=== PATIENT | male | born 1995 | race Caucasian/White ===

== ENCOUNTER 2016-11-01 04:19 | Observation (INO) | payer OTHER ==
[2016-11-01] VITALS (12 sets, daily range): BP systolic 94–118; BP diastolic 57–73; PULSE 53–79; TEMP 36.3–36.7; O2SAT 98–100; Ht 188 cm; Wt 81.0 kg
[~2016-11-01] VITALS: Ht 188 cm; Wt 81.0 kg
[2016-11-01] MEDS ORDERED: AMINOCAPROIC (AMICAR) 5% MOUTHWASH PO ONE (04:45)
[2016-11-01] MEDS: AMINOCAPROIC ACID 500 MG TAB PO ONE ×4 (05:00→05:22)
[2016-11-01 05:02] LABS: BASO % 0.4 %; BASO ABS # 0.02 K/uL (0-0.2); COMPLETE YES; EOS % 2.5 %; HEMATOCRIT 38.6 % (42-52); IG% 0.2 %; LYMPH % 33.2 %; LYMPH ABS # 1.75 K/uL (1.2-3.4); MEAN CELL VOLUME 82.8 fL (80-100); MEAN CORPUSCULAR HGB CONC 36.3 g/dl (32-36); MEAN PLATELET VOLUME 8.6 fL (7.4-10.4); MONO % 8.9 %; NEUT % 54.8 %; PLATELET COUNT 217 K/uL (130-400); RED BLOOD COUNT 4.66 M/uL (4.7-6.1); WHITE BLOOD COUNT 5.27 K/uL (4.8-10.8)
[2016-11-01 05:25] LABS: BUN/CREATININE RATIO 16.4 (10-20); CALCIUM 8.7 mg/dl (8.5-10.1); CREATININE 0.92 mg/dl (0.60-1.40); MAGNESIUM 2.1 mg/dl (1.8-2.4); POTASSIUM 3.4 mmol/L (3.5-5.1)
[2016-11-01 05:28] LABS: ALB/GLOB RATIO 1.3 (0.9-2)
[2016-11-01 05:32] LABS: PROTHROMBIN TIME (PATIENT) 79.7 SECONDS (9.0-12.0)
[2016-11-01 05:44] LABS: INR 6.9 (0.9-1.1); PARTIAL THROMBOPLASTIN RATIO 6.6
[2016-11-01] MEDS ORDERED: TRANEXAMIC ACID INJ 1,000 MG in SODIUM CHLORIDE 0.9% 100ML 100 ML IV ONE (06:00)
[2016-11-01] MEDS ORDERED: ACETAMINOPHEN 325 MG TAB PO PRN (06:45)
[2016-11-01] MEDS ORDERED: MAGNESIUM HYDROXIDE SUSP 30 ML UDC PO PRN (06:45)
[2016-11-01] MEDS ORDERED: ALUMINUM/MAGNESIUM/SIMETH (MAALOX MAX) 30 ML UDC PO PRN (06:45)
[2016-11-01] MEDS ORDERED: ONDANSETRON INJ 2 MG/ML 2 ML VIAL IV PRN (06:45)
--- NOTE | 2016-11-01 06:54 | History and Physical ---
History & Physical Date & Time of Service: Nov 01, 2016 at 06:37 Chief Complaint: Hemoplelin,Mouth Bleed All Night Primary Care Physician: 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 Pt developed a bleed behind his 2 front teeth which has been oozing for over 3 days. He takes oral Tranexamic acid regularly but had exhausted his supply. He states however that this does not help once the bleeding begins and that he invariably requires FFPs. He is a student here and normally gets care under the auspices of the hematology service at [facility]. He denies light headedness, nausea, vomiting or fevers. Past Medical/Surgical History 1) Hemophilia - Factor V deficiency Family History Both parents alive and well - no hemophilia in other family members Social History Computer science and engineering major at [employer] Smoking Status: Never Smoker Allergies Coded Allergies: No Known Allergies (Unverified , 11/01/16) Home Medications No Active Prescriptions or Reported Meds Review of Systems Constitutional: No chills, No fever, No sweats Eyes: No eye pain, No worsening of vision ENT: + problem reported (Oral bleed as above), No hearing loss, No nasal symptoms, No unusual epistaxis Respiratory: No cough, No sputum, No wheezing Cardiovascular: No PND, No chest pain, No orthopnea Abdomen: No nausea, No pain, No vomiting Musculoskeletal: No joint pain, No muscle pain Genitourinary - Male: No dysuria, No hematuria, No urinary frequency, No urinary urgency Neurologic: No memory loss, No paralysis, No weakness Psychiatric: No anhedonism, No depression symptoms Endocrine: + fatigue Hematologic / Lymphatic: + abnormal bleeding/bruising Integumentary: + rash Allergic / Immunologic: + environmental allergies Physical Exam Vital Signs Date Time Temp Pulse Resp B/P Pulse Ox O2 Delivery O2 Flow Rate FiO2 11/01/16 05:25 73 20 129/68 99 Room Air 11/01/16 04:24 37.1 78 18 141/71 96 Room Air General Appearance: WD/WN, no apparent distress Head: normocephalic, atraumatic Eyes: normal inspection, PERRL, EOMI ENT: normal ENT inspection, hearing grossly normal, TMs normal, pharynx normal , + pertinent finding (Small area of bleeding behind 2 front teeth) Neck: supple, thyroid normal Respiratory/Chest: chest non-tender, lungs clear, normal breath sounds, no respiratory distress, no accessory muscle use Cardiovascular: regular rate, rhythm, no edema, no gallop Abdomen/GI: normal bowel sounds, non tender, soft Back: normal inspection, no CVA tenderness Extremities/Musculoskelatal: normal inspection, no calf tenderness, normal capillary refill, no pedal edema, normal range of motion 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, no motor/sensory deficits, alert, normal mood/affect, normal reflexes, oriented x 3 Skin: normal color, warm/dry, no rash Diagnostics Laboratory Results Results Past 24 Hours Test 11/01/16 04:48 Range/Units White Blood Count 5.27 4.8-10.8 K/uL Red Blood Count 4.66 4.7-6.1 M/uL Hemoglobin 14.0 14.0-18.0 g/dL Hematocrit 38.6 42-52 % Mean Corpuscular Volume 82.8 80-100 fL Mean Corpuscular Hemoglobin 30.0 25-34 pg Mean Corpuscular Hemoglobin Concent 36.3 32-36 g/dl Platelet Count 217 130-400 K/uL Mean Platelet Volume 8.6 7.4-10.4 fL Neutrophils (%) (Auto) 54.8 % Lymphocytes (%) (Auto) 33.2 % Monocytes (%) (Auto) 8.9 % Eosinophils (%) (Auto) 2.5 % Basophils (%) (Auto) 0.4 % Neutrophils # (Auto) 2.89 1.4-6.5 K/uL Lymphocytes # (Auto) 1.75 1.2-3.4 K/uL Monocytes # (Auto) 0.47 0.11-0.59 K/uL Eosinophils # (Auto) 0.13 0-0.5 K/uL Basophils # (Auto) 0.02 0-0.2 K/uL RDW Standard Deviation 38.5 36.4-46.3 fL RDW Coefficient of Variation 12.7 11.5-14.5 % Immature Granulocyte % (Auto) 0.2 % Immature Granulocyte # (Auto) 0.01 0.00-0.02 K/uL Prothrombin Time 79.7 9.0-12.0 SECONDS Prothromb Time International Ratio 6.9 0.9-1.1 Activated Partial Thromboplast Time 174.6 21.0-31.0 SECONDS Partial Thromboplastin Ratio 6.6 Sodium Level 143 136-145 mmol/L Potassium Level 3.4 3.5-5.1 mmol/L Chloride Level 107 98-107 mmol/L Carbon Dioxide Level 26 21-32 mmol/L Anion Gap 10.0 3-11 mmol/L Blood Urea Nitrogen 15 7-18 mg/dl Creatinine 0.92 0.60-1.40 mg/dl Est Creatinine Clear Calc Drug Dose 148.4 ml/min Estimated GFR () 138.3 Estimated GFR (Non- 119.3 BUN/Creatinine Ratio 16.4 10-20 Random Glucose 100 70-99 mg/dl Calcium Level 8.7 8.5-10.1 mg/dl Magnesium Level 2.1 1.8-2.4 mg/dl Total Bilirubin 0.4 0.2-1 mg/dl Aspartate Amino Transf (AST/SGOT) 19 15-37 U/L Alanine Aminotransferase (ALT/SGPT) 35 12-78 U/L Alkaline Phosphatase 59 45-117 U/L Total Protein 7.0 6.4-8.2 gm/dl Albumin 3.9 3.4-5.0 gm/dl Globulin 3.1 2.5-4.0 gm/dl Albumin/Globulin Ratio 1.3 0.9-2 Impression Assessment and Plan 21 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 Pt developed a bleed behind his 2 front teeth which has been oozing for over 3 days. He takes oral Tranexamic acid regularly but had exhausted his supply. He states however that this does not help once the bleeding begins and that he invariably requires FFPs. He is a student here and normally gets care under the auspices of the hematology service at [facility] under Dr. Tucker. He denies light headedness, nausea, vomiting or fevers. We have contacted the hematology service who have advised on Amicar application q6H however the pt insists that once he starts bleeding he does not stop without FFPs. As he has considerable experience with this, we will oblige him and begin transfusions. He also states that the bleeding normally stops as the FFPs run and that he would like to be D/Cd when it does. There is no anemia present on admission. He has requested that we contact his General Road Production Manager at [facility] which is currently Dr Jo Tucker - [phone] Full code - chem prophylaxis contraindicated - INR on admission 6.9 Total time for this admit including review of records, labs, meds - discussion with Pt and ER attending - 32 min Level of Care Med/Surg Resuscitation Status FULL RESUSCITATION VTE Prophylaxis VTE Risk Assessment Done? Y/N: Yes Risk Level: Low Given or contraindicated: Contraindicated
[2016-11-01] MEDS ORDERED: IV FLUIDS COMPLETED PRN (07:00)
[2016-11-01] MEDS ORDERED: INFLUENZA ADMINISTRATION CHARGE ONE (12:00)
[2016-11-01] MEDS ORDERED: INFLUENZA VIRUS QUAD VACCINE 0.5 ML SYR IM. ONE (12:00)
--- NOTE | 2016-11-01 13:31 | Discharge Instructions ---
Discharge Instructions Admission Reason for Admission: Hemophilia; Oral Bleeding Discharge Discharge Diagnosis / Problem: Bleeding behind teeth with hx of factor V deficiency Discharge Goals Goal(s): Decrease discomfort, Increase independence Activity Recommendations Activity Limitations: resume your previous activity . Instructions / Follow-Up Instructions / Follow-Up You were admitted for bleeding behind your teeth. You were given FFP and your bleeding stopped. Please follow up with your doctor Dr. Morris after discharge. Current Hospital Diet Patient's current hospital diet: Full Liquid Diet Discharge Diet Recommended Diet: Regular Diet Pending Studies Studies pending at discharge: no Medical Emergencies . Who to Call and When: Medical Emergencies: If at any time you feel your situation is an emergency, please call 911 immediately. . Non-Emergent Contact Non-Emergency issues call your: Primary Care Provider . . "Provider Documentation" section prepared by Narayan Smith. VTE Core Measure Inpt VTE Proph given/why not?: Contraindicated
--- NOTE | 2016-11-01 14:19 | Discharge Summary ---
Discharge Summary Date of Service Nov 01, 2016. (Narayan Smith MD) Discharge Summary Admission Date: Nov 01, 2016 at 06:35 Discharge Date: Nov 01, 2016 Discharge Disposition: Home Principal Diagnosis: Hemophilia, Factor V deficiency (Narayan Smith MD) Medication Reconciliation Medication Profile: No Active Prescriptions or Reported Meds Discharge Exam Patient was seen at the bedside. He states that his bleeding has stopped and denies any complaints. Review of Systems: Constitutional: No chills, No fever ENT: No sore throat Respiratory: No cough, No dyspnea on exertion, No shortness of breath, No sputum Cardiovascular: No chest pain Abdomen: No constipation, No diarrhea, No nausea, No pain, No vomiting Musculoskeletal: No muscle pain Genitourinary - Male: No dysuria Neurologic: No weakness Endocrine: No fatigue Hematologic / Lymphatic: + problem reported (He states that his bleeding has stopped) Integumentary: No rash Physical Exam: General Appearance: WD/WN, no apparent distress Neck: supple, trachea midline Respiratory/Chest: chest non-tender, lungs clear, normal breath sounds, no respiratory distress, no accessory muscle use Cardiovascular: regular rate, rhythm, no edema, no murmur Abdomen / GI: normal bowel sounds, non tender, soft Extremities: no pedal edema, non-tender Neurologic/Psychiatric: alert, normal mood/affect, oriented x 3 Skin: normal color, warm/dry, no rash (Narayan Smith MD) Hospital Course This is a 21 y/o male with Factor V deficiency presented to the hospital with bleeding behind his 2 front tooth X3days. He states that he usually takes Tranexamic acid regularly but had exhausted his supply. Per him he usually requires FFP to stop the bleeding. He is a student here and normally gets care at [facility]. Patient was admitted to the hospital for observation. Hematology service was consulted and they advised on Amicar application q6H; however the patient insists that once he starts bleeding he does not stop without FFPs. As he has considerable experience with this, we decided to began transfusions. He received FFPs and his bleeding stopped. His CBC and electrolytes were appropriate. His INR was high (6.9). Patient wanted to be discharged. I called Dr. Morris ([phone]) and had a brief conversation about him. I informed her about his lab results and she stated that he can be discharged. She recommended that he can follow up with her as needed. Total Time Spent: Greater than 30 minutes This includes examination of the patient, discharge planning, medication reconciliation, and communication with other providers. (Narayan Smith MD) Resident Physician Supervision Note: I reviewed the case with Dr. Smith. I initiated the call to the patient's med care manager who eventually called back and spoke to Dr. Smith. The patient was seen earlier today by Dr. Massey. The patient was admitted and discharged in the same day. Documented By: French Fernandez (French Fernandez.,D.O.) Discharge Instructions Please refer to the electronic Patient Visit Report (Discharge Instructions) for additional information. (Narayan Smith MD)
--- NOTE | 2016-11-03 01:39 | EMERGENCY ROOM VISIT NOTE ---
History First contact with patient: 04:29 Chief Complaint: OTHER COMPLAINT Stated Complaint: HEMOPHILIA; ORAL BLEEDING History of Present Illness The patient is a 21 year old male who presents to the Emergency Department by private vehicle for evaluation of bleeding from the gums as well as occasional nosebleeds. The patient reports a significant past medical history of severe factor V deficiency. He follows with [facility]. His global category manager oncologist is located there as well. He reports that a few weeks ago he sustained a small laceration between the upper front teeth. He is an occasional bleeding from the teeth. This evening, while drinking water, he noticed bleeding from the mouth. He awoke with a moderate amount of blood. He has had waxing waning nosebleeds over the last few days. He reports that he has been taking his Lysteda as prescribed for his bleeding, but reports that he has since ran out of his prescription. He reports that he typically receives 2 units of FFP for any bleeding issue. This is happened on multiple occasions. The patient denies any pain rating his discomfort a 0/10. He denies any fevers , chills, headaches, distance, light headedness, chest pain, palpations, short of breath, nausea, vomiting, or melanotic stools. Review of Systems A complete 10-point Review of Systems was discussed with the patient, with pertinent positives and negatives listed in the History of Present Illness. All remaining Review of Systems questions can be considered negative unless otherwise specified. Past Medical/Surgical History Medical Problems: (1) Hemophilia (2) Oral bleeding Social History Smoking Status: Never Smoker Smokeless Tobacco Use: No Drug Use: none Marital Status: single Housing Status: lives with roommate Occupation Status: [employer] student Current/Historical Medications No Active Prescriptions or Reported Meds Allergies Coded Allergies: No Known Allergies (Unverified , 11/01/16) Physical Exam Vital Signs Date Time Temp Pulse Resp B/P Pulse Ox O2 Delivery O2 Flow Rate FiO2 11/01/16 05:25 73 20 129/68 99 Room Air 11/01/16 04:24 37.1 78 18 141/71 96 Room Air Pain Rating (0-10): 0 Physical Exam VITAL SIGNS - Vital signs and nursing notes were reviewed. GENERAL - Well nourished, well developed 21-year-old male in no acute distress. Pt communicates well with provider and answers questions appropriately. SKIN - Without rash. HEAD - NC/AT with no obvious deformities. EYES - PERRL with EOMI bilaterally. Sclera without injection. Palpebral conjunctiva pink and moist. EARS - No deformities of external structures noted on gross examination bilaterally. No pain elicited with palpation of the tragus bilaterally. External auditory canals without discharge or otorrhea. Tympanic membranes pearly jimenez without retraction or bulging. No fluid or purulent material visualized behind the TM. Handle of malleus, umbo, cone of light, pars tensa/ flaccid all easily visualized. NOSE - Midline and without cyanosis. No purulent drainage noted. Nasal mucosa without mucus discharge. MOUTH/OROPHARYNX - Without perioral cyanosis. Buccal mucosa pink and moist and without leukoplakia. Tongue midline with equal elevation of palate bilaterally. No tonsillar hypertrophy, erythema, or exudates noted. Good dentition noted. Persistent oozing of blood noted to the inner gums between the front teeth. NECK - Neck with FROM. Supple to palpation. No lymphadenopathy noted. No nuchal rigidity. Medical Decision & Procedures Laboratory Results 11/01/16 04:48 Red Blood Count 4.66, Mean Corpuscular Volume 82.8, Mean Corpuscular Hemoglobin 30.0, Mean Corpuscular Hemoglobin Concent 36.3, Mean Platelet Volume 8.6, Neutrophils (%) (Auto) 54.8, Lymphocytes (%) (Auto) 33.2, Monocytes (%) (Auto) 8.9, Eosinophils (%) (Auto) 2.5, Basophils (%) (Auto) 0.4, Neutrophils # (Auto) 2.89, Lymphocytes # (Auto) 1.75, Monocytes # (Auto) 0.47, Eosinophils # (Auto) 0.13, Basophils # (Auto) 0.02 11/01/16 04:48 Test 11/01/16 04:48 White Blood Count 5.27 K/uL (4.8-10.8) Red Blood Count 4.66 M/uL (4.7-6.1) Hemoglobin 14.0 g/dL (14.0-18.0) Hematocrit 38.6 % (42-52) Mean Corpuscular Volume 82.8 fL (80-100) Mean Corpuscular Hemoglobin 30.0 pg (25-34) Mean Corpuscular Hemoglobin Concent 36.3 g/dl (32-36) Platelet Count 217 K/uL (130-400) Mean Platelet Volume 8.6 fL (7.4-10.4) Neutrophils (%) (Auto) 54.8 % Lymphocytes (%) (Auto) 33.2 % Monocytes (%) (Auto) 8.9 % Eosinophils (%) (Auto) 2.5 % Basophils (%) (Auto) 0.4 % Neutrophils # (Auto) 2.89 K/uL (1.4-6.5) Lymphocytes # (Auto) 1.75 K/uL (1.2-3.4) Monocytes # (Auto) 0.47 K/uL (0.11-0.59) Eosinophils # (Auto) 0.13 K/uL (0-0.5) Basophils # (Auto) 0.02 K/uL (0-0.2) RDW Standard Deviation 38.5 fL (36.4-46.3) RDW Coefficient of Variation 12.7 % (11.5-14.5) Immature Granulocyte % (Auto) 0.2 % Immature Granulocyte # (Auto) 0.01 K/uL (0.00-0.02) Prothrombin Time 79.7 SECONDS (9.0-12.0) Prothromb Time International Ratio 6.9 (0.9-1.1) Activated Partial Thromboplast Time 174.6 SECONDS (21.0-31.0) Partial Thromboplastin Ratio 6.6 Anion Gap 10.0 mmol/L (3-11) Est Creatinine Clear Calc Drug Dose 148.4 ml/min Estimated GFR () 138.3 Estimated GFR (Non- 119.3 BUN/Creatinine Ratio 16.4 (10-20) Calcium Level 8.7 mg/dl (8.5-10.1) Magnesium Level 2.1 mg/dl (1.8-2.4) Total Bilirubin 0.4 mg/dl (0.2-1) Aspartate Amino Transf (AST/SGOT) 19 U/L (15-37) Alanine Aminotransferase (ALT/SGPT) 35 U/L (12-78) Alkaline Phosphatase 59 U/L (45-117) Total Protein 7.0 gm/dl (6.4-8.2) Albumin 3.9 gm/dl (3.4-5.0) Globulin 3.1 gm/dl (2.5-4.0) Albumin/Globulin Ratio 1.3 (0.9-2) Medications Administered Medications (Trade) Dose Ordered Sig/Vishal Route Start Time Stop Time Status Last Admin Dose Admin Aminocaproic Acid (Amicar 5% Mouthwash) 100 ml ONE ONCE PO 11/01/16 04:45 11/01/16 04:46 DC 11/01/16 04:45 100 ML Aminocaproic Acid (Amicar Tab) 4,000 mg NOW ONCE PO 11/01/16 05:00 11/01/16 05:01 DC 11/01/16 05:21 4,000 MG Aminocaproic Acid (Amicar Tab) 1,000 mg NOW ONCE PO 11/01/16 05:00 11/01/16 05:01 DC 11/01/16 05:22 1,000 MG ED Course Patient was seen and evaluated by myself. I discussed the case with Dr. Morfin. She suggests oral Amicar. Topical are was applied as well. He was treated with 5000 mg of oral Amicar. The patient reports having use this medication the past. Laboratory results demonstrate no acute leukocytosis, worrisome anemia, or bandemia. The patient has no significant electrolyte abnormalities. INR and PTT were significantly elevated consistent with the patient's history of disease. The patient has persistent bleeding and will need further evaluation. The patient was admitted to hospitalist service for close monitoring. Patient was admitted in stable condition. Medical Decision Given the patient's presentation and exam findings, I did elect to perform the above-mentioned workup. Patient presents today with bleeding from the gums. He does admit history of a blood hemophilia. He is out of his medications. At the recommendation of hematology, the patient was treated with Amicar topically as well as orally. He had persistent bleeding despite this. Patient typically receives FFP. He has no set orders from our facility. It was felt best that the patient be admitted and monitored and of FFP is necessary or appropriate, this certainly can be provided while the patient is closely monitored. The patient was admitted to the [facility] hospitalist service in stable condition. In the evaluation and treatment of this patient, the following differential diagnoses were considered: Anemia, dental trauma, DIC, amongst others. Impression Primary Impression: Oral bleeding Additional Impression: Hemophilia Departure Information Dispostion Admitted as an inpatient Condition GOOD Prescriptions No Active Prescriptions or Reported Meds Referrals [facility] (PCP) Forms WORK / SCHOOL INSTRUCTIONS, HOME CARE DOCUMENTATION FORM, IMPORTANT VISIT INFORMATION Patient Instructions My [facility] [place] [facility] Problem Qualifiers
== END 2016-11-01 14:00 | disposition home or self-care (01) ==
LOC: ENRESERVDT → ENRESERVTM → C.EDB 04:21 → C.4E 06:35
PROVIDERS: ADMIT Internal Medicine; ATTEND Internal Medicine
DX: D68.2 Hereditary deficiency of other clotting factors (principal); D66 Hereditary factor VIII deficiency; K06.8 Other specified disorders of gingiva and edentulous alveolar ridge

== ENCOUNTER 2017-01-07 08:47 | Emergency (ER) | payer OTHER ==
[~2017-01-07] VITALS: Ht 188 cm; Wt 80.0 kg
[2017-01-07 08:51] VITALS: Ht 188 cm; Wt 80.0 kg
--- NOTE | 2017-01-07 09:44 | EMERGENCY ROOM VISIT NOTE ---
History Report prepared by Kathrineibdonya: Wagner Kwon Under the Supervision of: Dr. Sara Ignacio D.O. First contact with patient: 09:27 Chief Complaint: ABDOMINAL PAIN Stated Complaint: ABDOMINAL PAIN, CONSTIPATION Nursing Triage Summary: patient c/o right lower abdominal pain since . Denies n/v. States he thought he was constipated so took laxative and has had a BM since then, but still feels constipated. Denies fever. History of Present Illness The patient is a 21 year old male who presents to the Emergency Room with complaints of waxing & waning abdominal pain that started when he woke up two mornings ago. The pain is worse on the right lower side. The pain is worse when he is on his feet and improves when he is sitting. He noticed some pain going over bumps in the car ride. He states that the pain is dull in nature. The patient has not taken anything for pain. The patient denies fevers, chills, cough or cold symptoms, nausea, vomiting, or urinary symptoms. The patient felt constipated yesterday. He took laxatives and was able to pass some stool. The stools were loose. The patient's pain was not relieved after his bowel movements. He has never had pain like this before. The patient normally has regular bowel movements and and does not usually deal with constipation. He has a somewhat decreased appetite. He denies recent travel or any new medication use. The patient has never had surgery of the abdomen. The patient has a history of hemophilia, which he takes medication for as needed. He does not take any medications regularly. He denies family history of inflammatory bowel disease. He is not a smoker. The patient just finished his final exams for college. Source of History: patient Onset: two mornings ago Position: abdomen (RLQ) Quality: dull Timing: waxes/wanes Modifying Factors (Relieving): other (sitting) Associated Symptoms: + diarrhea (loose), No chills, No cough, No fevers, No nausea, No urinary symptoms, No vomiting Review of Systems See HPI for pertinent positives & negatives. A total of 10 systems reviewed and were otherwise negative. Past Medical & Surgical Medical Problems: (1) Hemophilia (2) Oral bleeding Family History No pertinent family history Social History Smoking Status: Never Smoker Drug Use: none Marital Status: single Housing Status: lives with roommate Occupation Status: [employer] student Current/Historical Medications Scheduled PRN Sennosides (Ex-Lax), 2 TABS PEG UD PRN for Constipation Allergies Coded Allergies: No Known Allergies (Unverified , 01/07/17) Physical Exam Vital Signs Date Time Temp Pulse Resp B/P Pulse Ox O2 Delivery O2 Flow Rate FiO2 01/07/17 18:52 37.0 98 18 132/75 98 01/07/17 18:43 37.0 98 18 132/75 98 Room Air 01/07/17 17:33 84 18 122/69 99 01/07/17 16:22 87 16 125/75 99 Room Air 01/07/17 15:00 81 16 129/73 100 Room Air 01/07/17 13:26 80 16 121/73 97 Room Air 01/07/17 11:16 93 16 116/67 98 Room Air 01/07/17 10:27 96 16 130/75 99 01/07/17 08:51 36.9 112 16 113/90 96 Room Air Physical Exam GENERAL: alert, well appearing, well nourished, no distress, non-toxic EYE EXAM: normal conjunctiva, PERRL and EOM's grossly intact OROPHARYNX: no exudate, no erythema, lips, buccal mucosa, and tongue normal and mucous membranes are moist NECK: supple, no nuchal rigidity, no adenopathy, non-tender LUNGS: Clear to auscultation. Normal chest wall mechanics HEART: no murmurs, S1 normal and S2 normal ABDOMEN: Right lower quadrant tenderness with rebound tenderness, no guarding. BACK: Back is symmetrical on inspection and there is no deformity, no midline tenderness, no CVA tenderness. SKIN: no rashes and no bruising UPPER EXTREMITIES: upper extremities are grossly normal. LOWER EXTREMITIES: No pitting edema. NEURO EXAM: Normal sensorium, cranial nerves II-XII grossly intact, normal speech, no gross weakness of arms, no gross weakness of legs. Gross sensation intact. Medical Decision & Procedures ER Provider Diagnostic Interpretation: Xray results per the radiologist and my interpretation. ABDOMEN 2VIEW W/PA CHEST RTN CLINICAL HISTORY: abd pain COMPARISON STUDY: No previous studies for comparison. FINDINGS: The soft tissues, psoas shadows, renal outlines and intestinal gas pattern appear normal. There is no evidence for bowel obstruction. There is no evidence for free intraperitoneal air. No abnormal abdominal calcifications are seen. A frontal view of the chest was performed and is unremarkable. IMPRESSION: Normal study. Electronically signed by: Joe Aden M.D. 01/07/2017 11:03 AM Dictated Date/Time: 01/07/2017 11:03 AM ABDOMEN AND PELVIS CT WITH IV AND ORAL CONTRAST CT DOSE: 316.50 mGy.cm HISTORY: Pain RLA pain TECHNIQUE: Multiaxial CT images of the abdomen and pelvis were performed following the use of intravenous and oral contrast. COMPARISON STUDY: 11/06/2015 FINDINGS: Lung bases are clear. Liver spleen and pancreas are unremarkable. There is trace amount of perihepatic ascites. There is a complex heterogeneous masslike and/or hemorrhagic type process immediately adjacent to and displacing the hepatic flexure. This measures approximately 7 x 5 cm. It is immediately inferior to what appeared to be unremarkable gallbladder. Pancreas appears unremarkable. Inferior to this level of the cecum and what appears be a normal appendix is present. There is trace amount of free fluid surrounding the inferior right paracolic gutter with a moderate amount of blood within the pelvic cul-de-sac. There is moderate bladder wall thickening components of which relate to the contracted gallbladder state. Diagnostic considerations include localized perforated diverticulitis versus the less likely possibility of a perforated appendicitis of fluid. IMPRESSION: 1. Complex collection and/or phlegmon is type process medially adjacent to and displacing the hepatic flexure of the colon. 2. This is associated with a small amount of surrounding ascites as well as a rather significant amount of free blood within the pelvic cul-de-sac. 3. Diagnostic considerations include a perforated appendicitis epiploica, perforated cecal diverticulitis, versus a ruptured hemorrhagic lesion which is not defined. 4. Surgical consultation is suggested. Electronically signed by: Joe Aden M.D. 01/07/2017 4:39 PM Dictated Date/Time: 01/07/2017 4:31 PM Laboratory Results 01/07/17 09:30 Red Blood Count 4.69, Mean Corpuscular Volume 85.7, Mean Corpuscular Hemoglobin 30.5, Mean Corpuscular Hemoglobin Concent 35.6, Mean Platelet Volume 8.9, Neutrophils (%) (Auto) 75.0, Lymphocytes (%) (Auto) 13.3, Monocytes (%) (Auto) 10.9, Eosinophils (%) (Auto) 0.6, Basophils (%) (Auto) 0.1, Neutrophils # (Auto ) 5.82, Lymphocytes # (Auto) 1.03, Monocytes # (Auto) 0.85, Eosinophils # (Auto ) 0.05, Basophils # (Auto) 0.01 01/07/17 09:30 Test 01/07/17 09:30 01/07/17 12:30 White Blood Count 7.77 K/uL (4.8-10.8) Red Blood Count 4.69 M/uL (4.7-6.1) Hemoglobin 14.3 g/dL (14.0-18.0) Hematocrit 40.2 % (42-52) Mean Corpuscular Volume 85.7 fL (80-100) Mean Corpuscular Hemoglobin 30.5 pg (25-34) Mean Corpuscular Hemoglobin Concent 35.6 g/dl (32-36) Platelet Count 223 K/uL (130-400) Mean Platelet Volume 8.9 fL (7.4-10.4) Neutrophils (%) (Auto) 75.0 % Lymphocytes (%) (Auto) 13.3 % Monocytes (%) (Auto) 10.9 % Eosinophils (%) (Auto) 0.6 % Basophils (%) (Auto) 0.1 % Neutrophils # (Auto) 5.82 K/uL (1.4-6.5) Lymphocytes # (Auto) 1.03 K/uL (1.2-3.4) Monocytes # (Auto) 0.85 K/uL (0.11-0.59) Eosinophils # (Auto) 0.05 K/uL (0-0.5) Basophils # (Auto) 0.01 K/uL (0-0.2) RDW Standard Deviation 38.8 fL (36.4-46.3) RDW Coefficient of Variation 12.5 % (11.5-14.5) Immature Granulocyte % (Auto) 0.1 % Immature Granulocyte # (Auto) 0.01 K/uL (0.00-0.02) Anion Gap 6.0 mmol/L (3-11) Est Creatinine Clear Calc Drug Dose 121.2 ml/min Estimated GFR () 111.4 Estimated GFR (Non- 96.1 BUN/Creatinine Ratio 11.3 (10-20) Calcium Level 9.1 mg/dl (8.5-10.1) Total Bilirubin 1.2 mg/dl (0.2-1) Aspartate Amino Transf (AST/SGOT) 13 U/L (15-37) Alanine Aminotransferase (ALT/SGPT) 30 U/L (12-78) Alkaline Phosphatase 61 U/L (45-117) Total Protein 7.4 gm/dl (6.4-8.2) Albumin 4.1 gm/dl (3.4-5.0) Globulin 3.3 gm/dl (2.5-4.0) Albumin/Globulin Ratio 1.2 (0.9-2) Lipase 84 U/L (73-393) Urine Color DK YELLOW Urine Appearance CLEAR (CLEAR) Urine pH 6.5 (4.5-7.5) Urine Specific [place] 1.025 (1.000-1.030) Urine Protein NEG (NEG) Urine Glucose (UA) NEG (NEG) Urine Ketones TRACE (NEG) Urine Occult Blood NEG (NEG) Urine Nitrite NEG (NEG) Urine Bilirubin NEG (NEG) Urine Urobilinogen NEG (NEG) Urine Leukocyte Esterase NEG (NEG) Laboratory results per my review. Medications Administered Medications (Trade) Dose Ordered Sig/Vishal Route Start Time Stop Time Status Last Admin Dose Admin Morphine Sulfate (MoRPHine SULFATE INJ) 4 mg NOW STAT IV 01/07/17 10:03 01/07/17 10:04 DC 01/07/17 10:27 4 MG Dicyclomine HCl (Bentyl Tab) 20 mg NOW STAT PO 01/07/17 10:05 01/07/17 10:06 DC 01/07/17 10:36 20 MG Morphine Sulfate 4 mg 4 mg NOW STAT IV 01/07/17 17:16 01/07/17 17:18 DC 01/07/17 17:34 4 MG Sodium Chloride (Nss 1000ml) 1,000 ml @ 250 mls/hr Q4H STAT IV 01/07/17 17:16 01/07/17 19:46 DC 01/07/17 17:31 250 MLS/HR ED Course 0930: The patient was evaluated in room A4b. A complete history and physical exam was performed. 1003: Per nursing, the patient is having increased pain. 1003: Morphine Sulfate 4 mg IV. 1005: Bentyl 20 mg PO. 1115: Checked on the patient. He has no pain at the moment unless he presses on his abdomen. 1303: The patients meds wore off and his RLQ pain has returned. Discussed the risks and benefits of CT scanning with him and his father. He consented. 1630: Spoke with the radiologist, Dr. Adne, over the phone about the CT findings. 1644: Updated the patient and his father at bedside. They would prefer [facility] if he is transferred. 1701: Discussed the case with Dr. Mcgill, General Surgeon. Recommends transfer. 1710: Spoke with Dr. Johnson, [facility] ED. The patient was accepted. He will be transferred via ALS. 1716: NSS 1000 ml @ 250 mls/hr, Morphine Sulfate 4 mg IV. 1825: Checked on the patient. He is being prepared for transfer. Medical Decision Differential diagnoses includes but is not limited to gastritis, peptic ulcer disease, GERD, gallbladder disease, pancreatitis, small bowel obstruction, acute coronary syndrome, pericarditis, ischemic bowel, irritable bowel disease, irritable bowel syndrome, appendicitis, diverticulitis, malignancy, hernia, urinary tract infection, torsion, perforation, trauma, infectious. Patient presentation was not classic for appendicitis, however given location of pain and right lower quadrant, and no relief following use of laxatives and bowel movements for originally suspected constipation, labs and IV were started. Patient monitored as we discussed recent benefits of imaging initially and decided to wait and reevaluate and follow-up on blood work. Patient was afebrile, had no vomiting, no change in urine. Given persistence of pain on the right lower quadrant, discussion again with patient and now father at bedside of risks and benefits of CAT scan. They verbalized understanding were agreeable with pursuing imaging. CT revealed abnormal fluid collection. Unclear etiology of complex hemorrhagic collection in the abdomen. Patient exam only reveals mild right lower quadrant tenderness, not a surgical abdomen. Patient with no fevers or leukocytosis and stable vital signs throughout. Doubt acute perforation of abdominal viscus. No acute persistent bleeding noted by radiology on CT. Discussion with her she for transfer and they excepted as this was the patient's preference is his protective signal repairer had originally been there. Patient well aware of his condition, and father bedside for discussion of results. He felt patient stable for ground transfer at this time. No evidence of bacteremia/sepsis. Patient denied any recent even mild trauma on repeat exam. Patient aware of possible additional interventions including monitoring, antibiotics, IR drainage of collection, or possible surgery. He and father are aware that additional evaluation and discussion will take place upon arrival to [facility]. Consults Time Called: 1650 Consulting Physician: Dr. Mcgill, General Surgeon. Returned Call: 1701 Recommends transfer. Additional Consults: Time Called: 1700 Consulted Physician: Dr. Jacques, [facility] Returned Call: 1710 Additional Comments: The patient was accepted Impression Primary Impression: Right lower quadrant abdominal pain Additional Impression: Intraabdominal fluid collection Critical Care I have personally spent greater than 45 minutes of critical care time in the direct management of this patient. This includes bedside care, interpretation of diagnostic studies, and testing, discussion with consultants, patient, and family members, and other required patient management activities. This 45 minutes is in excess of all separately billable procedures. Patient at risk for acute life-threatening event relating to gastrointestinal pathology. Scribe Attestation The scribe's documentation has been prepared under my direction and personally reviewed by me in its entirety. I confirm that the note above accurately reflects all work, treatment, procedures, and medical decision making performed by me. Departure Information Dispostion Transfer Acute Care Facility Referrals [facility] (PCP) Patient Instructions My [facility] Problem Qualifiers
[2017-01-07] MEDS ORDERED: SENN15CH6 PEG (09:52)
[2017-01-07 10:00] LABS: BASO % 0.1 %; BASO ABS # 0.01 K/uL (0-0.2); COMPLETE YES; EOS % 0.6 %; HEMATOCRIT 40.2 % (42-52); IG% 0.1 %; LYMPH % 13.3 %; LYMPH ABS # 1.03 K/uL (1.2-3.4); MEAN CELL VOLUME 85.7 fL (80-100); MEAN CORPUSCULAR HEMOGLOBIN 30.5 pg (25-34); MEAN CORPUSCULAR HGB CONC 35.6 g/dl (32-36); MEAN PLATELET VOLUME 8.9 fL (7.4-10.4); MONO % 10.9 %; PLATELET COUNT 223 K/uL (130-400); RED BLOOD COUNT 4.69 M/uL (4.7-6.1); WHITE BLOOD COUNT 7.77 K/uL (4.8-10.8)
[2017-01-07] MEDS ORDERED: MoRPHine SULFATE 4 MG/ML 1 ML CARP\\VIAL IV STA ×2 (10:03→17:16)
[2017-01-07] MEDS ORDERED: DICYCLOMINE HCL 20 MG TAB PO STA (10:05)
[2017-01-07 10:17] LABS: BUN/CREATININE RATIO 11.3 (10-20); CALCIUM 9.1 mg/dl (8.5-10.1); CREATININE 1.1 mg/dl (0.60-1.40); POTASSIUM 3.7 mmol/L (3.5-5.1)
[2017-01-07 10:20] LABS: ALB/GLOB RATIO 1.2 (0.9-2)
--- NOTE | 2017-01-07 11:05 | DIAGNOSTIC IMAGING REPORT ---
ABDOMEN 2VIEW W/PA CHEST RTN CLINICAL HISTORY: abd pain COMPARISON STUDY: No previous studies for comparison. FINDINGS: The soft tissues, psoas shadows, renal outlines and intestinal gas pattern appear normal. There is no evidence for bowel obstruction. There is no evidence for free intraperitoneal air. No abnormal abdominal calcifications are seen. A frontal view of the chest was performed and is unremarkable. IMPRESSION: Normal study. Electronically signed by: Joe Aden M.D. 01/07/2017 11:03 AM Dictated Date/Time: 01/07/2017 11:03 AM
[2017-01-07 13:08] LABS: URINE APPEARANCE CLEAR (CLEAR); URINE BILIRUBIN NEG (NEG); URINE COLOR DK YELLOW; URINE NITRITE NEG (NEG); URINE PH 6.5 (4.5-7.5); URINE SPECIFIC GRAVITY 1.025 (1.000-1.030); UROBILINOGEN NEG (NEG); ZZUR CULT IF INDIC CLEAN CATCH NO
[2017-01-07 13:10] LABS: MANUAL MICROSCOPIC REQUIRED? NO; REVIEW REQ? NO
[2017-01-07] MEDS ORDERED: OPTIRAY 320 IV PRN (16:00)
--- NOTE | 2017-01-07 16:41 | DIAGNOSTIC IMAGING REPORT ---
ABDOMEN AND PELVIS CT WITH IV AND ORAL CONTRAST CT DOSE: 316.50 mGy.cm HISTORY: Pain RLA pain TECHNIQUE: Multiaxial CT images of the abdomen and pelvis were performed following the use of intravenous and oral contrast. COMPARISON STUDY: 11/06/2015 FINDINGS: Lung bases are clear. Liver spleen and pancreas are unremarkable. There is trace amount of perihepatic ascites. There is a complex heterogeneous masslike and/or hemorrhagic type process immediately adjacent to and displacing the hepatic flexure. This measures approximately 7 x 5 cm. It is immediately inferior to what appeared to be unremarkable gallbladder. Pancreas appears unremarkable. Inferior to this level of the cecum and what appears be a normal appendix is present. There is trace amount of free fluid surrounding the inferior right paracolic gutter with a moderate amount of blood within the pelvic cul-de-sac. There is moderate bladder wall thickening components of which relate to the contracted gallbladder state. Diagnostic considerations include localized perforated diverticulitis versus the less likely possibility of a perforated appendicitis of fluid. IMPRESSION: 1. Complex collection and/or phlegmon is type process medially adjacent to and displacing the hepatic flexure of the colon. 2. This is associated with a small amount of surrounding ascites as well as a rather significant amount of free blood within the pelvic cul-de-sac. 3. Diagnostic considerations include a perforated appendicitis epiploica, perforated cecal diverticulitis, versus a ruptured hemorrhagic lesion which is not defined. 4. Surgical consultation is suggested. Electronically signed by: Joe Aden M.D. 01/07/2017 4:39 PM Dictated Date/Time: 01/07/2017 4:31 PM
[2017-01-07] MEDS ORDERED: SODIUM CHLORIDE 0.9% 1000ML 1,000 ML IV STA (17:16)
[2017-01-07 18:52] VITALS: BP 132/75; PULSE 98; TEMP 37; O2SAT 98
== END 2017-01-07 18:54 | disposition short-term general hospital (02) ==
LOC: C.EDB 08:48 → C.EDA 18:54
DX: R10.31 Right lower quadrant pain (principal); R18.8 Other ascites; D66 Hereditary factor VIII deficiency

== ENCOUNTER 2017-06-29 20:55 | Emergency (ER) | payer OTHER ==
[~2017-06-29] VITALS: Ht 188 cm; Wt 85.1 kg
[~2017-06-29 20:55] MED LIST: SENN15CH6 PEG
[2017-06-29 21:03] VITALS: Ht 188 cm; Wt 85.1 kg
--- NOTE | 2017-06-29 21:26 | EMERGENCY ROOM VISIT NOTE ---
History First contact with patient: 21:12 Chief Complaint: BLEEDING Stated Complaint: JOINT BLEED IN [place] TNA Nursing Triage Summary: PT has factor five deficiency bleeding disorder, PT has pain and swelling to right ring finger joint, noticed about a week ago. PT has no other injuries noted, denies any injuries to right ring finger. PT denies nose bleeds, denies blood in urine, denies any abd pain/nausea. PT has no other issues at this time. History of Present Illness The patient is a 22 year old male who presents to the Emergency Room with complaints of a joint bleed in his right 4th digit of his right hand. He states he has factor five deficiency and is in the hospital at least once a year due to joint bleeds that often occur in his knee, ankle or fingers. He denies any trauma to the finger, and states he woke up with the swelling 1 week ago. He states that it is painful to bend, and it looks and feels like his previous joint bleeds. He denies any other symptoms of bleeding, and states that he otherwise feels well at this time. He says in the past, he has required 1-2 units of FFP to correct this. His rail detector car operator is Dr. Abrams at the [facility] in [place]. Review of Systems See HPI for pertinent positives & negatives. A total of 10 systems reviewed and were otherwise negative. Past Medical/Surgical History Medical Problems: (1) Hemophilia (2) Oral bleeding Family History No pertinent family history Social History Smoking Status: Never Smoker Drug Use: none Marital Status: single Housing Status: lives with roommate Occupation Status: [employer] student Current/Historical Medications No Active Prescriptions or Reported Meds Physical Exam Vital Signs Date Time Temp Pulse Resp B/P (MAP) Pulse Ox O2 Delivery O2 Flow Rate FiO2 06/29/17 21:03 37.2 91 18 120/78 96 Room Air Physical Exam HEENT: Head - normocephalic and atraumatic. Pupils are equal, round, and reactive to light. Extraocular eye muscles are intact and sclera are anicteric. Ears - bilaterally patent canals with noninjected tympanic membranes and no evidence of hemotympanum. Nose - moist nasal mucosa without discharge. Mouth - moist buccal mucosa. Oropharynx is nonerythematous and there is no tonsillar exudate or edema noted. Neck: Supple; no JVD, nuchal rigidity, cervical lymphadenopathy, or auscultated bruits. Heart: Regular rate and rhythm. There is a normal S1 and S2 with no murmurs, clicks, or gallops appreciated. Lungs: Clear to auscultation bilaterally with no wheezes, rales, or rhonchi. Abdomen: Soft, completely nontender, nondistended, with good bowel sounds. There are no palpable pulsatile masses or hepatosplenomegaly. There is no guarding, rigidity, or rebound noted. Extremities: No evidence of cyanosis, clubbing, or edema. There are easily palpable peripheral pulses. Erythema and swelling of PIP of right 4th digit. Decreased ROM in DIP. Neuro:The patient is awake and alert, oriented to day, time, and place. Muscle strength is 5/5 in all 4 extremities. The patient has equal production clerk strength and equal pedal push and pull. There are no cerebellar signs. Medical Decision & Procedures ED Course 21:15: The patient was evaluated in room A9. 21:40: The case was discussed with Dr. Bautista. 21:45: The patient was seen with Dr. Bautista 21:50: I called the [facility] for further instructions. Awaiting a call back from the physician second cook and baker, Dr. Flores. 21:55: Spoke with Dr. Flores who looked up Rj's records. The recommendations were DDAVP for minor bleeds and FFP for more substantial bleeding. 22:10: Rj stated that DDAVP did not work for him in the past, and that he usually receives FFP and Benadryl as prophylaxis beforehand. The risks of a blood transfusion were explained to him and he consented to receiving a transfusion of FFP. Medical Decision The patient is a 22 year old male who presents to the Emergency Room with complaints of a joint bleed in his right 4th digit of his right hand. Differential diagnosis at this time includes hemarthrosis, infection, trauma, fracture. He will receive FFP as per his rail detector car operator's recommendations. Impression Primary Impression: Bleeding into joint Additional Impression: Hemophilia Departure Information Dispostion Home / Self-Care Prescriptions No Active Prescriptions or Reported Meds Referrals No Doctor, Assigned (PCP) Patient Instructions My [facility] Resident Tracking Resident Involvement: Resident Care Provided Care Provided: Adult Hospital Medicine Problem Qualifiers
--- NOTE | 2017-06-29 21:52 | EMERGENCY ROOM VISIT NOTE ---
History Report prepared by Tao: Marii Moctezuma Under the Supervision of: Dr. Nathan Bautista M.D. First contact with patient: 21:12 Chief Complaint: BLEEDING Stated Complaint: JOINT BLEED IN [facility] Nursing Triage Summary: PT has factor five deficiency bleeding disorder, PT has pain and swelling to right ring finger joint, noticed about a week ago. PT has no other injuries noted, denies any injuries to right ring finger. PT denies nose bleeds, denies blood in urine, denies any abd pain/nausea. PT has no other issues at this time. History of Present Illness The patient is a 22 year old male who presents to the Emergency Room with complaints of persistent bleeding from his right 4th DIP joint starting 1 week ago. The patient has a history of severe factor V deficiency. He is unsure how the bleeding started. He has bleeding from a joint around once a year. He has had 1 episode of internal bleeding in the past. He currently denies abdominal pain, any other pain, or swelling. Source of History: patient Onset: 1 week ago Position: finger(s) (right 4th DIP joint) Quality: other (bleeding) Timing: other (persistent) Associated Symptoms: No abdominal pain Review of Systems See HPI for pertinent positives & negatives. A total of 10 systems reviewed and were otherwise negative. Past Medical & Surgical Medical Problems: (1) Hemophilia (2) Oral bleeding Family History No pertinent family history Social History Smoking Status: Never Smoker Drug Use: none Marital Status: single Housing Status: lives with roommate Occupation Status: [employer] student Current/Historical Medications No Active Prescriptions or Reported Meds Allergies Coded Allergies: No Known Allergies (Unverified , 06/29/17) Physical Exam Vital Signs Date Time Temp Pulse Resp B/P (MAP) Pulse Ox O2 Delivery O2 Flow Rate FiO2 06/30/17 03:15 62 20 95 06/30/17 03:13 36.6 63 16 105/57 96 06/30/17 03:01 105/57 06/30/17 03:00 69 28 97 06/30/17 02:44 36.7 64 18 114/67 98 06/30/17 02:44 114/67 06/30/17 02:31 106/67 06/30/17 02:30 63 21 110/64 97 06/30/17 02:30 36.7 63 18 110/64 97 06/30/17 02:01 123/72 06/30/17 02:00 70 28 97 06/30/17 01:30 36.8 59 18 107/60 95 06/30/17 01:05 37.0 65 18 112/69 97 06/30/17 00:54 64 18 113/66 99 Room Air 06/30/17 00:51 71 06/30/17 00:46 36.7 78 16 113/66 98 0.0 06/29/17 22:56 76 18 125/81 99 Room Air 06/29/17 21:03 37.2 91 18 120/78 96 Room Air Physical Exam GENERAL: Patient is a healthy-appearing well-nourished male HEAD: Normocephalic atraumatic EYES: Ocular movements intact pupils equal and react to light OROPHARYNX mucous membranes are moist no exudates present no erythema or edema present NECK: Supple no nuchal rigidity CHEST: Good equal expansion LUNGS: Clear and equal to auscultation CARDIAC: Normal S1 and S2 ABDOMEN: Soft nontender no guarding BACK: No CVA tenderness EXTREMITIES: No pain upon palpation normal muscle strength in all groups no clubbing cyanosis or edema except right 4th DIP joint is swollen. NEURO: Patient is following commands and answering questions appropriately. Alert and oriented x3 Cranial Nerves 2-12 grossly intact Medical Decision & Procedures ER Provider Diagnostic Interpretation: X-ray results as stated below per interpretation by me and the radiologist: RIGHT FOURTH FINGER 3 VIEWS CLINICAL HISTORY: Trauma. Bleeding. COMPARISON: None. DISCUSSION: No fractures or dislocations are visualized. No radiopaque foreign bodies are evident. IMPRESSION: 1. No acute fractures 2. No radiopaque foreign bodies are visualized Electronically signed by: Everton Washington M.D. 06/29/2017 10:41 PM Dictated Date/Time: 06/29/2017 10:40 PM Medications Administered Medications (Trade) Dose Ordered Sig/Vishal Route Start Time Stop Time Status Last Admin Dose Admin Diphenhydramine HCl (Benadryl Inj) 50 mg NOW STAT IV 06/29/17 22:18 06/29/17 22:19 DC 06/29/17 22:55 50 MG ED Course 2143: Past medical records reviewed. The patient was evaluated in room A9B. A complete history and physical examination was performed. 2218: Benadryl Inj 50 mg IV. Medical Decision Resident Physician Supervision Note: I interviewed and examined the patient. Discussed with Dr. Galvin and agree with findings and plan as documented in the note. Documented By: Nathan Bautista This is a 22-year-old male who has bleeding into his joint of his knuckle. The patient is a hemophiliac. We Did discuss the case with the patient's legal consultant, who asked that the patient receive FFP. Patient was typed And screened and received 2 units of FFP. Impression Primary Impression: Bleeding into joint Additional Impression: Hemophilia Scribe Attestation The scribe's documentation has been prepared under my direction and personally reviewed by me in its entirety. I confirm that the note above accurately reflects all work, treatment, procedures, and medical decision making performed by me. Departure Information Dispostion Home / Self-Care Prescriptions No Active Prescriptions or Reported Meds Referrals [facility] (PCP) Patient Instructions My [facility] Problem Qualifiers
[2017-06-29] MEDS ORDERED: DiphenhydrAMINE HCL 50 MG/ML VIAL IV STA (22:18)
--- NOTE | 2017-06-29 22:42 | DIAGNOSTIC IMAGING REPORT ---
RIGHT FOURTH FINGER 3 VIEWS CLINICAL HISTORY: Trauma. Bleeding. COMPARISON: None. DISCUSSION: No fractures or dislocations are visualized. No radiopaque foreign bodies are evident. IMPRESSION: 1. No acute fractures 2. No radiopaque foreign bodies are visualized Electronically signed by: Everton Washington M.D. 06/29/2017 10:41 PM Dictated Date/Time: 06/29/2017 10:40 PM
[2017-06-30] VITALS (7 sets, daily range): BP systolic 105–114; BP diastolic 57–69; PULSE 59–78; TEMP 36.6–37; O2SAT 95–98
== END 2017-06-30 03:46 | disposition home or self-care (01) ==
LOC: C.EDB 20:56 → C.EDA 06-30 03:46
DX: S61.401A Unspecified open wound of right hand, initial encounter (principal); X58.XXXA Exposure to other specified factors, initial encounter; D66 Hereditary factor VIII deficiency

== ENCOUNTER 2017-08-01 10:02 | Emergency (ER) | payer OTHER ==
[2017-08-01] VITALS (7 sets, daily range): BP systolic 112–126; BP diastolic 62–78; PULSE 64–78; TEMP 36.7–37; O2SAT 98–99; Ht 188 cm; Wt 85.5 kg
[~2017-08-01] VITALS: Ht 188 cm; Wt 85.5 kg
[2017-08-01] MEDS ORDERED: OXYMETAZOLINE HCL 0.05% NA SPR 15 ML BTL ONE (10:17)
[2017-08-01] MEDS ORDERED: TRAN1TAB47 PO ×2 (10:25→12:10)
[2017-08-01 10:44] LABS: BASO % 0.5 %; BASO ABS # 0.03 K/uL (0-0.2); COMPLETE YES; HEMATOCRIT 41.3 % (42-52); IG% 0.2 %; LYMPH % 27.3 %; LYMPH ABS # 1.74 K/uL (1.2-3.4); MEAN CELL VOLUME 86.4 fL (80-100); MEAN CORPUSCULAR HEMOGLOBIN 30.1 pg (25-34); MEAN CORPUSCULAR HGB CONC 34.9 g/dl (32-36); MEAN PLATELET VOLUME 8.6 fL (7.4-10.4); PLATELET COUNT 222 K/uL (130-400); RED BLOOD COUNT 4.78 M/uL (4.7-6.1); WHITE BLOOD COUNT 6.37 K/uL (4.8-10.8)
[2017-08-01 10:59] LABS: BUN/CREATININE RATIO 14.6 (10-20); CALCIUM 8.9 mg/dl (8.5-10.1); CREATININE 1.08 mg/dl (0.60-1.40); POTASSIUM 3.6 mmol/L (3.5-5.1)
--- NOTE | 2017-08-01 12:42 | EMERGENCY ROOM VISIT NOTE ---
History Report prepared by Kathrineibdonya: Susie Pham Under the Supervision of: John Paul HendricksonO. First contact with patient: 10:11 Chief Complaint: NOSE BLEED (MINOR) Stated Complaint: SEVERE DAILY NOSE BLEEDS HX: HEMOPHELIA History of Present Illness The patient is a 22 year old male who presents to the Emergency Room with complaints of intermittent epistaxis for the past week. The patient has a history of Factor V Deficiency. He states that he typically gets nosebleeds during the winter due to the dry air. He reports that for the past week he has been having 1-2 nosebleeds per day lasting 2-4 hours. Last night he developed bleeding in the left nares. He denies any active bleeding. The patient follows with a die cast patternmaker at [facility] in [place]. He states that he typically gets transfusions with his nose bleeds. The patient denies shortness of breath, chest pain, nausea, or vomiting. Source of History: patient Onset: 1 week ago Position: nose Quality: other (bleeding) Timing: intermittent Modifying Factors (Worsening): other (cold air) Modifying Factors (Relieving): other (time) Associated Symptoms: No chest pain, No SOB, No nausea, No vomiting Review of Systems See HPI for pertinent positives & negatives. A total of 10 systems reviewed and were otherwise negative. Past Medical & Surgical Medical Problems: (1) Hemophilia (2) Joint bleeding (3) Muscle hemorrhage (4) Oral bleeding Family History Cancer Social History Smoking Status: Never Smoker Alcohol Use: occasionally Drug Use: none Marital Status: single Housing Status: lives alone Occupation Status: [employer] student Current/Historical Medications Scheduled Tranexamic Acid (Lysteda), 2 TAB PO TID Tranexamic Acid (Lysteda), 2 TAB PO TID Allergies Coded Allergies: No Known Allergies (Unverified , 08/01/17) Physical Exam Vital Signs Date Time Temp Pulse Resp B/P (MAP) Pulse Ox O2 Delivery O2 Flow Rate FiO2 08/01/17 14:52 36.8 75 18 126/78 99 08/01/17 14:22 36.9 71 18 120/72 98 08/01/17 13:42 70 18 122/78 08/01/17 13:42 36.9 76 18 122/78 98 08/01/17 13:31 70 18 121/74 08/01/17 13:26 36.7 78 18 119/71 98 08/01/17 13:14 70 19 119/71 08/01/17 13:04 64 08/01/17 13:01 72 19 110/71 08/01/17 12:57 112/62 08/01/17 12:54 37.0 64 18 112/62 98 08/01/17 12:53 71 17 99 08/01/17 12:53 68 18 113/74 99 Room Air 08/01/17 12:39 37.0 68 18 113/74 99 08/01/17 12:20 36.8 72 19 120/74 99 08/01/17 11:32 65 18 114/65 98 Room Air 08/01/17 11:01 72 19 118/64 98 Room Air 08/01/17 10:38 72 18 133/73 98 Room Air 08/01/17 10:38 73 08/01/17 10:37 72 16 123/80 98 Room Air 08/01/17 10:04 37.1 89 18 138/86 93 Room Air Physical Exam GENERAL: Sitting up in bed, alert, well appearing, well nourished, no distress, non-toxic EYE EXAM: normal conjunctiva. NOSE: Faint venous oozing from the left nasal septum OROPHARYNX: no exudate, no erythema, lips, buccal mucosa, and tongue normal and mucous membranes are moist NECK: supple, no nuchal rigidity, no adenopathy, non-tender LUNGS: Clear to auscultation. Normal chest wall mechanics HEART: no murmurs, S1 normal and S2 normal ABDOMEN: abdomen soft, non-tender, normo-active bowel sounds, no masses, no rebound or guarding. UPPER EXTREMITIES: upper extremities are grossly normal. LOWER EXTREMITIES: No pitting edema. NEURO EXAM: Normal sensorium. Medical Decision & Procedures Laboratory Results 08/01/17 10:29 Red Blood Count 4.78, Mean Corpuscular Volume 86.4, Mean Corpuscular Hemoglobin 30.1, Mean Corpuscular Hemoglobin Concent 34.9, Mean Platelet Volume 8.6, Neutrophils (%) (Auto) 62.0, Lymphocytes (%) (Auto) 27.3, Monocytes (%) (Auto) 8.0, Eosinophils (%) (Auto) 2.0, Basophils (%) (Auto) 0.5, Neutrophils # (Auto) 3.95, Lymphocytes # (Auto) 1.74, Monocytes # (Auto) 0.51, Eosinophils # (Auto) 0.13, Basophils # (Auto) 0.03 08/01/17 10:29 Test 08/01/17 10:29 White Blood Count 6.37 K/uL (4.8-10.8) Red Blood Count 4.78 M/uL (4.7-6.1) Hemoglobin 14.4 g/dL (14.0-18.0) Hematocrit 41.3 % (42-52) Mean Corpuscular Volume 86.4 fL (80-100) Mean Corpuscular Hemoglobin 30.1 pg (25-34) Mean Corpuscular Hemoglobin Concent 34.9 g/dl (32-36) Platelet Count 222 K/uL (130-400) Mean Platelet Volume 8.6 fL (7.4-10.4) Neutrophils (%) (Auto) 62.0 % Lymphocytes (%) (Auto) 27.3 % Monocytes (%) (Auto) 8.0 % Eosinophils (%) (Auto) 2.0 % Basophils (%) (Auto) 0.5 % Neutrophils # (Auto) 3.95 K/uL (1.4-6.5) Lymphocytes # (Auto) 1.74 K/uL (1.2-3.4) Monocytes # (Auto) 0.51 K/uL (0.11-0.59) Eosinophils # (Auto) 0.13 K/uL (0-0.5) Basophils # (Auto) 0.03 K/uL (0-0.2) RDW Standard Deviation 40.0 fL (36.4-46.3) RDW Coefficient of Variation 12.7 % (11.5-14.5) Immature Granulocyte % (Auto) 0.2 % Immature Granulocyte # (Auto) 0.01 K/uL (0.00-0.02) Anion Gap 6.0 mmol/L (3-11) Est Creatinine Clear Calc Drug Dose 125.8 ml/min Estimated GFR () 113.1 Estimated GFR (Non- 97.6 BUN/Creatinine Ratio 14.6 (10-20) Calcium Level 8.9 mg/dl (8.5-10.1) Laboratory results per my review. ED Course ED COURSE: Vital signs were reviewed and showed normal. The patients medical record was reviewed The above diagnostic studies were performed and reviewed. ED treatments and interventions as stated above. 1011: The patient was evaluated in room B9. A complete history and physical examination was performed. 1017: Ordered Afrin 0.05% Nasal [place] 1 spray intranasally. 1055: I applied Afrin to the left naris. Patient has mild venous oozing along the left septum. 1100: I spoke with Dr. Wong, the salon supervisor die cast patternmaker at [facility] in [place]. We discussed the patient's case. He recommends FFP 750 mL and Lysteda. 1129: I spoke with the on-call die cast patternmaker at [facility] in [place] regarding the patient's case. He recommends that the patient follow -up as an outpatient with his PCP. 1200: The patient consented for platelets. 1328: I reassessed the patient and he is doing well. 1405: The patient is still resting comfortably. 1441: Upon reevaluation, the patient is resting comfortably. I discussed my findings with the patient and he understands and agrees with the treatment plan. Based on the patient's age, coexisting illnesses, exam and lab findings the decision to treat as an outpatient was made. The patient remained stable while under my care. The patient appeared well at the time of discharge. Medical Decision Differential diagnosis: Etiologies such as anterior epistaxis, coagulopathy, traumatic injury, fracture , septal hematoma, posterior epistaxis as well as other pathologies were entertained. Patient is a 22-year-old male who presents to ER for epistaxis. He has a history of hemophilia/factor V deficiency which is severe. Follows with [facility] in [place]. Discussed with 2 separate attending physicians there. They recommend FFP and restarting his oral TXA at home. Patient has no other complaints at this time. Patient was given FFP following consent under the direction of children's attending. Patient was observed for close to 2 hours. Blood work was unremarkable. He was discharged to follow-up with his outpatient die cast patternmaker and ENT. Discussed with Pt concerning signs and symptoms to watch out for. Pt was instructed to follow up with their PCP and discussed with the patient their option to return to the ED at anytime for persistent or worsening symptoms. The appropriate anticipatory guidance and out- patient management, including indications for return to the emergency department , were explained at length to the patient and understood. Medication Reconcilliation Current Medication List: was personally reviewed by me Blood Pressure Screening Patient's blood pressure: Normal blood pressure Consults Time Called: 1055 Consulting Physician: Dr. Wong Returned Call: [address] Wong, the salon supervisor die cast patternmaker at [facility] in [place]. We discussed the patient's case. He recommends FFP 750 mL and Lysteda. Additional Consults: Time Called: 1121 Consulted Physician: on-call die cast patternmaker Returned Call: 1129 Additional Comments: I spoke with the on-call die cast patternmaker at [facility] in [place] regarding the patient's case. He recommends that the patient follow-up as an outpatient with his PCP. Impression Primary Impression: Epistaxis Scribe Attestation The scribe's documentation has been prepared under my direction and personally reviewed by me in its entirety. I confirm that the note above accurately reflects all work, treatment, procedures, and medical decision making performed by me. Departure Information Dispostion Home / Self-Care Prescriptions Tranexamic Acid (LYSTEDA) 650 Mg Tab 2 TAB PO TID for 5 Days, #30 TAB 6 Refills Prov: Vikash Wyman, DO 08/01/17 Referrals No Doctor, Assigned (PCP) Forms HOME CARE DOCUMENTATION FORM, IMPORTANT VISIT INFORMATION, WORK / SCHOOL INSTRUCTIONS Patient Instructions My [facility] Additional Instructions Please follow up with your primary care doctor with in the next 24 hours. Any worsening of your symptoms, please return to the ED immediately. This includes recurrence of your bleeding, difficulty breathing, or any other concerning signs or symptoms from your standpoint. If bleeding recurs please squirt 2 doses of Afrin into affected nose. Please hold pressure for 15 minutes without looking. If he continues bleeding following this please return to the ER. Please take your tranexamic acid orally for the next 3-4 days.
== END 2017-08-01 14:50 | disposition home or self-care (01) ==
LOC: C.EDB 10:03
DX: R04.0 Epistaxis (principal); D66 Hereditary factor VIII deficiency; D68.2 Hereditary deficiency of other clotting factors; Z79.899 Other long term (current) drug therapy